=== PATIENT | male | born 1980 | race Two or more races ===

== ENCOUNTER 2019-09-17 11:08 | Outpatient (CLI) | payer OTHER, SELFPAY ==
--- NOTE | 2019-10-19 16:41 | WPDHOLTEREM ---
Holter/Event Monitor Holter/Event Monitor Date of procedure: 10/19/19 Procedure Type: 30 day event monitor Indications: Palpitations Conclusion: 1. 30 day event monitor between 09/17/19-10/16/19. There are 7 available transmissions for analysis. 2. Underlying rhythm is sinus rhythm. HR range 5-120 bpm ;average HR 79 bpm. 3. There are occasional premature supraventricular complexes with total burden <1%. No supraventricualr tachycardia. 4. Unable to calculate number of PVC's due to excessive artifact. No ventricular tachycardia. 5. No significant pauses greater than 2 seconds. 6. Patient reports one episode of heart racing which demonstrate sinus rhythm at 74 bpm.
== END 2019-09-17 11:09 | disposition home or self-care (01) ==
PROVIDERS: PCP Internal Medicine; Visit Provider Internal Medicine
DX: R00.2 Palpitations (principal)
CPT/HCPCS: 93270

== ENCOUNTER 2021-05-17 18:04 | Outpatient (CLI) | payer OTHER, SELFPAY ==
--- NOTE | ~2021-05-17 | XR_ITS ---
EXAMINATION: XR thoracic spine 3V DATE: 05/17/2021 18:47 INDICATION: Upper to mid back pain. TECHNIQUE: 3 views of thoracic spine were obtained. COMPARISON: None. FINDINGS: There is interbody fusion at T9-T10 with focal kyphosis. There is moderately decreased disc height at T8-T9 and T5-T6. There are endplate osteophytes at multiple levels. IMPRESSION: 1. Moderate thoracic spondylosis. 2. Interbody fusion at T9-T10. Reviewed, dictated and finalized at location A. [employer]
== END 2021-05-17 18:05 | disposition home or self-care (01) ==
LOC: CHSIMG 18:05
PROVIDERS: PCP Internal Medicine; Visit Provider Internal Medicine
DX: M54.6 Pain in thoracic spine (principal)
CPT/HCPCS: 72072

== ENCOUNTER 2022-10-15 16:41 | Outpatient (CLI) | payer SELFPAY ==
--- NOTE | ~2022-10-15 | US_ITS ---
EXAMINATION: US scrotum doppler DATE: 10/15/2022 17:20 INDICATION: Testicular pain and swelling. TECHNIQUE: Grayscale and Doppler ultrasound images of the testes were obtained. COMPARISON: None. FINDINGS: The right testis measures 3.9 x 2.9 x 3.1 cm. The left testis measures 3.9 x 2.3 x 2.2 cm. There is increased vascularity in right testis. The right epididymis is enlarged and hypoechoic with increased vascularity. The left epididymis is normal with normal vascular flow. There is a small righ t hydrocele. IMPRESSION: 1. Right-sided epididymoorchitis. 2. Small right hydrocele. Reviewed, dictated and finalized at location E.
== END 2022-10-15 16:42 | disposition home or self-care (01) ==
LOC: ANHIMG 16:46
PROVIDERS: PCP Internal Medicine; Visit Provider Internal Medicine
DX: N50.3 Cyst of epididymis (principal); N45.3 Epididymo-orchitis
CPT/HCPCS: 76870; 93976

== ENCOUNTER 2023-10-11 08:29 | Outpatient (CLI) | payer BC, SELFPAY ==
--- NOTE | ~2023-10-11 | CT_ITS ---
EXAMINATION: CT abdomen pelvis wo/w con DATE: 10/11/2023 09:25 INDICATION: Gross hematuria. TECHNIQUE: Computed tomography (CT) of the abdomen and pelvis was performed without intravenous contr ast. CT of the abdomen and pelvis was then performed with a total of 130 mL Omnipaque-350 intravenous contrast using a double-bolus technique for simultaneous opacification of the renal parenchyma and r enal collecting system. Automated exposure control and iterative reconstruction technique were employ ed. The dose-length product was 1670.24 mGy-cm. COMPARISON: None FINDINGS: Lung bases are clear. Heart size is normal. No pericardial or pleural effusion. Liver, gallbladder, s pleen, pancreas and left adrenal gland are normal. Right adrenal gland calcification likely sequela p rior infection or hemorrhage. Bilateral kidneys are normal with symmetric enhancement with hydronephr osis or renal parenchymal lesions. No urolithiasis. The bilateral ureters are opacified in their enti rety on delayed imaging with no evident urothelial irregularities. Bladder is normal. Mild prostatome nati measuring 4.0 x 3.5 cm. Very small fat-containing right inguinal hernia. Bowels including the ap pendix are normal. No free intraperitoneal gas or fluid. No pathologically enlarged abdominal or pelv ic lymphadenopathy. Likely chronic T10 compression fracture which is fused anteriorly to T11. IMPRESSION: 1. Normal bladder and bilateral kidneys and ureters with no urolithiasis or other etiology for report ed hematuria. 2. Mild prostatomegaly. 3. Very small fat-containing right inguinal hernia. Reviewed, dictated and finalized at location B. IMPRESSION: 1. Normal bladder and bilateral kidneys and ureters with no urolithiasis or oth er etiology for reported hematuria. 2. Mild prostatomegaly. 3. Very small fat-containing right inguinal hernia.
[2023-10-11 08:58] LABS: Estimated Glomerular Filt Rate > 60
== END 2023-10-11 08:30 | disposition home or self-care (01) ==
LOC: CHSIMG 08:31
PROVIDERS: PCP Internal Medicine; Visit Provider Internal Medicine
DX: R31.9 Hematuria, unspecified (principal); N40.0 Benign prostatic hyperplasia without lower urinary tract symptoms; K40.90 Unilateral inguinal hernia, without obstruction or gangrene, not specified as recurrent
CPT/HCPCS: 74178; Q9967